=== PATIENT | male | born 1965 | race Hispanic/Latino ===

== ENCOUNTER 2023-03-19 21:57 | Emergency (ER) | payer OTHER ==
[~2023-03-19] VITALS: Ht 162.6 cm; Wt 76.7 kg
== END 2023-03-20 00:40 | disposition home or self-care (01) ==
LOC: EDH 21:57 → EEVIPCON 21:57 → EDH 03-20 00:40
DX: S61.218A Laceration without foreign body of other finger without damage to nail, initial encounter (principal); Z02.89 Encounter for other administrative examinations; V89.2XXA Person injured in unspecified motor-vehicle accident, traffic, initial encounter; Y93.89 Activity, other specified; Y92.488 Other paved roadways as the place of occurrence of the external cause; Y99.8 Other external cause status
CPT/HCPCS: 12001; 73120